=== PATIENT | female | born 1975 | race Caucasian/White ===

== ENCOUNTER → 2020-10-12 14:11 | Outpatient (CLI) | payer OTHER, SELFPAY ==
--- NOTE | ~2020-10-12 | MM_ITS ---
EXAMINATION: MM screening [facility] BI w yo HISTORY: Screening mammogram TECHNIQUE: Craniocaudal and mediolateral oblique 3-D tomosynthesis images were obtained and synthetic 2-D images were generated. CAD analysis was submitted and interpreted. COMPARISON: 09/03/2018, 03/12/2016, 02/16/2015 BREAST PARENCHYMAL COMPOSITION: There are scattered areas of fibroglandular density. FINDINGS: There is no evidence of suspicious mass, calcification, or architectural distortion to sugg est malignancy in either breast. There has been no suspicious interval change. IMPRESSION: 1. No mammographic evidence of malignancy. 2. Recommend routine screening mammography in one year. BI-RADS Category 1: Negative Reviewed, dictated and finalized at location A. 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
== END ==
PROVIDERS: Visit Provider Obstetrics & Gynecology
DX: Z12.31 Encounter for screening mammogram for malignant neoplasm of breast (principal)
CPT/HCPCS: 77063; 77067

== ENCOUNTER 2022-11-27 09:54 | Outpatient (CLI) | payer OTHER, SELFPAY ==
--- NOTE | 2022-11-27 10:05 | EST_ITS ---
Patient Info Name: Gay Johnson Age: 47 years : 1975 Gender: Female Ht: 64 in Wt: 135 lbs BSA: 1.67 m2 HR: 64 bpm BP: 117 / 87 mmHg Heart Rhythm: Sinus Rhythm Exam Date: 11/27/2022 10:17 AM Exam Location: [facility] [place] Stress Patient Status: Outpatient Admit Date: 11/27/2022 Staff Ordering Physician: Octavio Meza DO Attending Provider: Octavio Meza DO Exercise Technologist: Lu Leigh CT Exercise Physician: Octavio Meza DO Exam Type: CA stress test treadmill Study Info Indications R07.9 - Chest pain, unspecified A treadmill exercise stress test was performed. Summary 1. 1. Negative Elliott exercise stress test for ischemic ST changes by ECG criteria. 2. 2. Good functional capacity, achieving 10.9 METs of workload. 3. 3. Appropriate HR response to exercise. 4. 4. Appropriate HR recovery at 1 minute post exercise. 5. 5. No imaging with stress testing. 6. 6. Patient informed of the above results. Protocol: Elliott Stress ECG Details Stage: REST Duration (min): 3 min : 56 sec Speed (mph): 0.0 Grade (%): 0 HR (bpm): 68 SBP (mmHg): 117 DBP (mmHg): 87 METS: --- Stage: REST Duration (min): 4 min : 18 sec Speed (mph): 0.0 Grade (%): 0 HR (bpm): 65 SBP (mmHg): 117 DBP (mmHg): 87 METS: --- Stage: STAGE 1 Duration (min): 1 min : 0 sec Speed (mph): 1.7 Grade (%): 10 HR (bpm): 89 SBP (mmHg): 117 DBP (mmHg): 87 METS: --- Stage: STAGE 1 Duration (min): 2 min : 0 sec Speed (mph): 1.7 Grade (%): 10 HR (bpm): 93 SBP (mmHg): 117 DBP (mmHg): 87 METS: --- Stage: STAGE 1 Duration (min): 3 min : 0 sec Speed (mph): 1.7 Grade (%): 10 HR (bpm): 91 SBP (mmHg): 130 DBP (mmHg): 67 METS: --- Stage: STAGE 2 Duration (min): 1 min : 0 sec Speed (mph): 2.5 Grade (%): 12 HR (bpm): 99 SBP (mmHg): 130 DBP (mmHg): 67 METS: --- Stage: STAGE 2 Duration (min): 2 min : 0 sec Speed (mph): 2.5 Grade (%): 12 HR (bpm): 104 SBP (mmHg): 126 DBP (mmHg): 68 METS: --- Stage: STAGE 2 Duration (min): 3 min : 0 sec Speed (mph): 2.5 Grade (%): 12 HR (bpm): 109 SBP (mmHg): 126 DBP (mmHg): 68 METS: --- Stage: STAGE 3 Duration (min): 1 min : 0 sec Speed (mph): 3.4 Grade (%): 14 HR (bpm): 122 SBP (mmHg): 122 DBP (mmHg): 70 METS: --- Stage: STAGE 3 Duration (min): 2 min : 0 sec Speed (mph): 3.4 Grade (%): 14 HR (bpm): 125 SBP (mmHg): 122 DBP (mmHg): 70 METS: --- Stage: STAGE 3 Duration (min): 3 min : 0 sec Speed (mph): 3.4 Grade (%): 14 HR (bpm): 123 SBP (mmHg): 122 DBP (mmHg): 70 METS: --- Stage: STAGE 4 Duration (min): 0 min : 24 sec Speed (mph): 4.2 Grade (%): 16 HR (bpm): 149 SBP (mmHg): 122 DBP (mmHg): 70 METS: ---
== END 2022-11-27 09:55 | disposition home or self-care (01) ==
PROVIDERS: PCP Physician Assistant Medical; Visit Provider Internal Medicine Cardiovascular Disease
DX: R07.9 Chest pain, unspecified (principal)
CPT/HCPCS: 93017